=== PATIENT | male | born 1995 | race Caucasian/White ===

== ENCOUNTER 2017-04-18 11:54 | Emergency (ER) | payer MEDICAID ==
[~2017-04-18] VITALS: Ht 190.5 cm; Wt 113.6 kg
[~2017-04-18 11:54] MED LIST: CIPRO 500MG TA500 MG PO; NO HOME MEDICATIONS
[2017-04-18 12:23] VITALS: BP 153/91; TEMP 99.4
[2017-04-18 13:38] LABS: INFLUENZA A NEGATIVE; INFLUENZA B NEGATIVE
[2017-04-18 13:40] LABS: STREP SCREEN NEGATIVE
[2017-04-18] MEDS ORDERED: TUSS PO (14:03)
[2017-04-18 14:30] VITALS: PULSE 90
== END 2017-04-18 14:31 | disposition home or self-care (01) ==
LOC: COL.ER 11:54
PROVIDERS: Nurse Practitioner
DX: R05 Cough (principal)

== ENCOUNTER 2017-05-25 13:27 | Emergency (ER) | payer MEDICAID ==
[~2017-05-25] VITALS: Ht 188 cm; Wt 102.3 kg
[~2017-05-25 13:27] MED LIST changes: +TUSS PO
[2017-05-25 13:36] VITALS: BP 139/91; TEMP 99.5
[2017-05-25 14:47] LABS: HEMATOCRIT 49.5 % (42.0-52.0); MEAN CELL VOLUME 84 fl (80.0-100.0); MEAN CORPUSCULAR HEMOGLOBIN 29 pg (27.0-31.0); MEAN CORPUSCULAR HGB CONC 34 g/dl (33.0-37.0); MEAN PLATELET VOLUME 8.6 fl (7.4-10.4); PLATELET COUNT 249 K/mm3 (130-400); RED BLOOD COUNT 5.93 M/mm3 (4.20-5.60); REDCELL DISTRIBUTION WIDTH-CV 12.6 % (11.5-14.5)
[2017-05-25 14:58] LABS: ALANINE AMINOTRANSFERASE 30 U/L (21-72); ALBUMIN 4.9 gm/dL (3.5-5.0); ALKALINE PHOSPHATASE 88 U/L (50-136); ANION GAP 15 mmol/L (7-16); AST,SGOT 20 U/L (15-37); BILIRUBIN,TOTAL 0.7 mg/dL (0.0-1.0); BLOOD UREA NITROGEN 13 mg/dL (9-20); C-REACTIVE PROTEIN 2.9 mg/dL (0.0-0.9); CALCIUM 9.4 mg/dL (8.4-10.2); CARBON DIOXIDE 26 mmol/L (22-30); CHLORIDE 100 mmol/L (98-107); CREATININE, serum 0.79 mg/dL (0.66-1.25); GLUCOSE 100 mg/dL (74-106); LIPASE 19 U/L (23-300); POTASSIUM 3.7 mmol/L (3.4-5.0); SODIUM 140 mmol/L (137-145)
[2017-05-25 15:06] LABS: BAND 17 % (0-10); LYMPHOCYTE 7 % (20.0-51.0); NEUTROPHILS 73 % (42.0-75.2); PLATELET ESTIMATE NORMAL (NORMAL)
[2017-05-25 15:08] LABS: MICROCYTOSIS 1+
[2017-05-25 15:16] LABS: ALCOHOL(ethanol),MEDICAL < 10 mg/dL
[2017-05-25] MEDS ORDERED: ZOFRAN 4MG T4 MG/TAB PO (15:38)
[2017-05-25 15:46] VITALS: PULSE 108
== END 2017-05-25 15:48 | disposition home or self-care (01) ==
LOC: COL.ER 13:27
PROVIDERS: Emergency Medicine
DX: F10.10 Alcohol abuse, uncomplicated (principal); Y90.0 Blood alcohol level of less than 20 mg/100 ml; R10.13 Epigastric pain; F12.90 Cannabis use, unspecified, uncomplicated
CPT/HCPCS: J2405; J7030

== ENCOUNTER → 2017-09-30 | Outpatient (CLI) | payer MEDICAID ==
[~2017-09-30] MED LIST changes: +ZOFRAN 4MG T4 MG/TAB PO
[2017-09-30 18:01] LABS: HIV 1/2 Antibodies Non-Reactive; HIV-1p24 Antigen Non-Reactive
== END ==
LOC: COL.LAB 16:36
PROVIDERS: Family Medicine
DX: Z11.3 Encounter for screening for infections with a predominantly sexual mode of transmission (principal); Z13.1 Encounter for screening for diabetes mellitus

== ENCOUNTER 2017-10-11 13:07 | Emergency (ER) | payer MEDICAID ==
[~2017-10-11] VITALS: Ht 188 cm; Wt 112.3 kg
[2017-10-11 13:10] VITALS: BP 127/92; PULSE 63; TEMP 98.2
[2017-10-11] MEDS ORDERED: BACTRIM DS 8001 TAB PO (15:24)
== END 2017-10-11 15:34 | disposition home or self-care (01) ==
LOC: COL.ER 13:07
DX: Q18.1 Preauricular sinus and cyst (principal); Z88.1 Allergy status to other antibiotic agents; Z88.0 Allergy status to penicillin

== ENCOUNTER 2017-11-05 13:15 | Outpatient (RCR) | payer MEDICAID ==
[~2017-11-05 13:15] MED LIST changes: +BACTRIM DS 8001 TAB PO
== END 2017-12-28 | disposition home or self-care (01) ==
LOC: MKS.ESL.OT
DX: M25.562 Pain in left knee (principal); M25.561 Pain in right knee; M25.522 Pain in left elbow; M25.512 Pain in left shoulder

== ENCOUNTER → 2017-11-28 | Outpatient (CLI) | payer MEDICAID ==
[2017-11-28 16:24] LABS: HIV 1/2 Antibodies Non-Reactive; HIV-1p24 Antigen Non-Reactive
[2017-11-29 05:22] LABS: RPR (VDRL) Non-reactive (())
== END ==
LOC: COL.LAB 14:25
PROVIDERS: Family Medicine
DX: Z20.2 Contact with and (suspected) exposure to infections with a predominantly sexual mode of transmission (principal)

== ENCOUNTER → 2017-12-29 | Outpatient (CLI) | payer MEDICAID ==
[2017-12-29 18:02] LABS: HIV 1/2 Antibodies Non-Reactive; HIV-1p24 Antigen Non-Reactive
== END ==
LOC: COL.LAB 17:00
PROVIDERS: Family Medicine
DX: Z20.2 Contact with and (suspected) exposure to infections with a predominantly sexual mode of transmission (principal)

== ENCOUNTER → 2018-12-15 | Outpatient (CLI) | payer MEDICAID | LOC: ZCOL.LAB 15:48 | DX: J02.9 Acute pharyngitis, unspecified (principal) ==